=== PATIENT | male | born 1990 | race Caucasian/White ===

== ENCOUNTER 2019-10-29 11:48 | Emergency (ER) | payer SELFPAY ==
[2019-10-29 11:54] VITALS: BP 123/78; PULSE 96; RESP 16; TEMP 36.7; O2SAT 96
--- NOTE | 2019-10-29 12:05 | W.ED.GENAD ---
Discharge Plan Disposition Patient Disposition: HOME Condition: Stable Discharge Details Chief Complaint: Sorethroat Clinical Impression: Exposure to Streptococcal pharyngitis Primary Care Provider: None,None ED Provider: Gabriela Maciel Home Meds and New Rx's Prescriptions: New penicillin V potassium 500 mg tablet 500 mg PO BID 10 Days Qty: 20 RF: 0 Continued albuterol sulfate [ProAir HFA] 8.5 GM HFA aerosol inhaler 2 puff Inhalation Q4H PRN Qty: 1 RF: 3 fluticasone propion-salmeterol [Advair Diskus] 1 EACH blister with device 1 puff Inhalation BID Qty: 3 RF: 3 No Action amoxicillin 500 MG tablet 500 mg PO BID 7 Days Qty: 14 RF: 0 Discharge Instructions Instructions: Strep Throat (ED) Additional Instructions: Gargle with warm salt water up to 3 times a day as needed. Please take Tylenol or Ibuprofen with food every 4-6 hours as needed for pain and swelling. Take medications as prescribed. Take with food or yogurt. Follow up with primary care provider in 3-5 days. Return to ED sooner if any worsening or concerns. Increase oral fluids. Referrals: Melissa Mendieta NP [NURSE PRACTITIONER] - Medical Decision Making 29-year-old male presents with chief complaint of sore throat which began this morning. He presents with his who also has similar symptoms and history of strep throat pharyngitis. He does have erythemic posterior pharynx, tonsils bilaterally 1+ no exudate. No cervical lymphadenopathy. Is a smoker, denies fever, chills, trouble swallowing, or any other symptoms. 1208: Patient requests oral tablets for treatment options, dexamethasone 10 mg p.o. and penicillin V 500 mg ordered. Based on patient's symptoms and recent sick contact with a history of strep throat patient will be treated empirically for group A streptococcal. Return instructions discussed, verbalized understanding instructed to gargle with warm salt water at least 3 times a day, instructed to follow-up with primary care provider in 3 to 5 days. Patient verbalized understanding. HPI General Mode of arrival: ambulatory. Date/Time Provider Initiated Documentation: 10/29/19 11:49. Limitations to Documentation: no limitations. Information obtained by: patient. HPI Narrative: 29-year-old male presents with chief complaint of sore throat which began this morning. He presents with his who also has similar symptoms and history of strep throat pharyngitis. He does have erythemic posterior pharynx, tonsils bilaterally 1+ no exudate. No cervical lymphadenopathy. Is a smoker, denies fever, chills, trouble swallowing, or any other symptoms. Related Data Home Medications Medication Instructions Recorded Confirmed albuterol sulfate [ProAir HFA] 2 puff INHALATION Q4H PRN #1 12/30/15 10/29/19 inhaler fluticasone propion-salmeterol 1 puff INHALATION BID #3 inhaler 09/25/16 10/29/19 [Advair Diskus] amoxicillin 500 mg PO BID 7 Days #14 tab-cap 04/02/17 10/29/19 penicillin V potassium 500 mg PO BID 10 Days #20 tab 10/29/19 Previous Rx's Medication Instructions Recorded amoxicillin 500 mg PO BID 7 Days #14 tab-cap 04/02/17 penicillin V potassium 500 mg PO BID 10 Days #20 tab 10/29/19 Allergies Allergy/AdvReac Type Severity Reaction Status Date / Time No Known Allergies Allergy Unverified 04/01/17 13:31 General Stated Complaint: Sorethroat HARPER: 4 Review of Systems Narrative: Constitutional: Negative for weight loss, alert and oriented, well groomed, normal body habitus, appears comfortable. HEENT: Denies trauma, headaches, blurry vision, nasal discharge, sore throat, trouble swallowing. Chest: Denies chest pain, palpitations, irregular rhythm, hypertension. Respiratory: Denies Shortness of breath, cough, hemoptysis. GI: Denies abdominal pain, nausea, vomiting, diarrhea, constipation. : Denies dysuria, hematuria, flank pain, rectal bleeding. Neuro: Denies dizziness, blurry vision, weakness, syncope, headache or facial numbness. Hematologic: Denies easy bruising, intolerance to heat or cold, hair loss. [facility] Medical History ADHD (attention deficit hyperactivity disorder) Asthma Insomnia Learning difficulty Tobacco use disorder Social History Smoking/Tobacco Use Status: Current every day Tobacco Type: cigarettes Drug use: Daily Do you feel safe at home: Yes Do you feel safe in your relationship?: Yes Exam Narrative Exam Narrative: Constitutional: Alert and oriented x3. Appears stated age. Normal body habitus. Head: Normocephalic, no trauma. Eyes: Pupils PERRLA, Red reflex noted, EOM's intact. Eyelids symmetrical without lesions, discharge, or swelling. ENT: Bilateral TM's WNL, External ear normal to inspection, no mastoid TTP, swelling, or erythema, Nasal turbinates WNL, no nasal discharge. Normal dentition, Posterior pharynx erythemic, tonsils bilaterally 1+, no exudate. Chest: RRR, Normal S1, S2, distal pulses intact. Resp: Lungs clear to auscultation bilaterally, no wheezes, rales, or rhonchi. Musculoskeletal: Normal gait, 5/5 strength to all four extremities. Skin: No suspicious rashes or lesions. Capillary refill less than 2 sec. Neurologic: Cranial nerves II-XII intact. Alert and oriented x 3. DTR's intact. Hematologic/Lymphatic: No ecchymosis, no lymphadenopathy. Course Vital Signs Vital signs: Vital Signs Temperature 36.7 C 10/29/19 11:54 Pulse 96 H 10/29/19 11:54 Respiratory Rate 16 10/29/19 11:54 Blood Pressure 123/78 10/29/19 11:54 Pulse Oximetry 96 10/29/19 11:54 Temperature 36.7 C 10/29/19 11:54 Temperature Source Tympanic 10/29/19 11:54 Pulse 96 H 10/29/19 11:54 Respiratory Rate 16 10/29/19 11:54 Blood Pressure 123/78 10/29/19 11:54 Pulse Oximetry 96 10/29/19 11:54 Oxygen Delivery Method Room Air 10/29/19 11:54 Oxygen Flow Rate 0 10/29/19 11:54
[2019-10-29] MEDS: Penicillin V POTASSIUM 500 MG TAB PO (12:09)
[2019-10-29] MEDS: Dexamethasone 10 MG/ML VIAL PO (12:09)
== END 2019-10-29 12:34 | disposition home or self-care (01) ==
PROVIDERS: Emergency Provider Registered Nurse Emergency
DX: J02.9 Acute pharyngitis, unspecified (principal); Z20.89 Contact with and (suspected) exposure to other communicable diseases; F17.210 Nicotine dependence, cigarettes, uncomplicated
CPT/HCPCS: 99283; J1100

== ENCOUNTER 2020-10-30 18:16 | Emergency (ER) | payer MEDICAID, SELFPAY ==
[2020-10-30] VITALS (23 sets, daily range): BP systolic 101–143; BP diastolic 65–90; PULSE 46–55; RESP 22; TEMP 36.9; O2SAT 97–100
--- NOTE | 2020-10-30 18:45 | RT.EKG_ITS ---
APPROVED REPORT Exam: Resting ECG Reason for Exam: tachy, smoked crack Patient Location: E HR:52 bpm ECG Measurements Heart Rate 52 AXIS ND 136 P 64 QRSd 112 QRS 61 QT 582 T 75 QTc 544 Conclusion Sinus bradycardia...rate< 60 Probable left atrial enlargement...P >50mS, <-0.10mV V1 Incomplete right bundle branch block...QRSd >112, terminal axis(90,270) Prolonged QT interval...QTc >488mS I have reviewed and interpreted ECG and agree with software generated interpretation.
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
[2020-10-30 19:54] LABS: Abs Immature Grans 0.05 10^3/uL (0.0-0.06); Absolute Basophil Count 0.01 10^3/uL (0.0-0.2); Absolute Lymphocyte Count 1.15 10^3/uL (1.2-3.4); Absolute Monocyte Count 0.33 10^3/uL (0.1-0.8); Basophils % 0.1; HCT 46.9 % (40.0-50.0); HGB 16.4 g/dL (13.5-17.5); Immature Grans % 0.4; MCH 28.7 pg (27.0-33.0); MCV 82.1 fL (80-95); MPV 9.5 fL (8.0-11.0); Monocytes % 2.6; Neutrophils % 87.9; Nucleated RBC 0 %; Platelet Count 308 10^3/uL (130-400); RBC 5.71 10^6/uL (4.36-5.78); RDW 11.4 % (11.8-14.1); RDW-SD 33.6 fL
[2020-10-30 19:55] LABS: Absolute Neutrophil Count 11.25 10^3/uL (1.2-6.7)
[2020-10-30] MEDS: Ketorolac 30 MG/ML VIAL IVP (20:03)
[2020-10-30] MEDS: Normal Saline 1,000 ML 1000 ML IV (20:03)
[2020-10-30] MEDS: Ondansetron 4 MG/2 ML VIAL IVP (20:04)
[2020-10-30 20:09] LABS: ALT 29 U/L (16-63); AST 17 U/L (15-37); Albumin 4.2 g/dL (3.4-5.0); Alkaline Phosphatase 124 U/L (46-116); Anion Gap 12.7 mmol/L (3-11); BUN 13 mg/dL (7-18); Bilirubin, Total 0.6 mg/dL (0.2-1.0); CO2 25.3 mmol/L (21.0-32.0); CREATININE 1.2 mg/dL (0.70-1.30); Calcium 10.2 mg/dL (8.5-10.1); Chloride 99 mmol/L (98-107); Glucose 128 mg/dL (74-106); Lipase 56 U/L (73-393); Potassium 3.8 mmol/L (3.5-5.1); Sodium 137 mmol/L (136-145); Total Protein 8.8 g/dL (6.4-8.2)
[2020-10-30 20:25] LABS: Troponin I < 0.05 ng/mL (<0.06)
[2020-10-30] MEDS: cloNIDine 0.1 MG TAB PO ×2 (20:32→21:51)
[2020-10-30] MEDS: Dicyclomine 20 MG TAB PO ×2 (20:41→21:51)
[2020-10-30] MEDS: Lactated Ringers 1,000 ML 1000 ML IV (20:57)
[2020-10-30 21:03] LABS: Bilirubin Small (Negative); Blood Negative (Negative); Clarity Clear (Clear); Glucose Negative (Negative); Ketones >=160 mg/dL (Negative); Leukocyte Esterase Negative (Negative); Nitrite Negative (Negative); Specific Gravity 1.015 (1.005-1.025); pH >= 9.0 (5-8)
[2020-10-30 21:11] LABS: Bacteria Negative HPF (Negative); C & S Indicated? No; Casts Negative LPF (Negative); Crystals Negative HPF (Negative); Epithelial Cells Negative HPF (Negative); Mucus Moderate (Negative); Other Cells Negative (Negative); RBC Negative HPF (0-2); WBC 0-2 HPF (0-5)
[2020-10-30 21:22] LABS: *AMPHETAMINES SCREEN URINE Negative (Negative); *BARBITURATES SCREEN URINE Negative (Negative); *BENZODIAZEPINES SCREEN URINE Negative (Negative); Cannabinoids THC Positive (Negative); Cocaine Screen,Urine Positive (Negative); METHADONE URINE SCREEN Negative (Negative); OPIATES URINE SCREEN Positive (Negative); Tricyclic Antidepressants Negative (Negative)
[2020-10-30] MEDS: Dicyclomine 20 MG TAB (21:51)
== END 2020-10-30 21:49 | disposition home or self-care (01) ==
PROVIDERS: Emergency Provider Physician Assistant
DX: F11.23 Opioid dependence with withdrawal (principal)
CPT/HCPCS: 80053; 80307; 83690; 93005; 96361; 96374; 96375; 99284; 81003; 81015; 84484; 85025; 93010; 99283; J1885; J2405

== ENCOUNTER 2021-01-11 10:12 | Emergency (ER) | payer MEDICAID, SELFPAY ==
[2021-01-11 10:14] VITALS: BP 123/76; PULSE 80; RESP 18; TEMP 36.5; O2SAT 98
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
[2021-01-11] MEDS: Methadone Liquid 10 MG/ML 75 MG PO (12:07)
[2021-01-11 12:12] VITALS: BP 125/80; PULSE 57; RESP 18; O2SAT 95
--- NOTE | 2021-01-14 11:28 | W.ED.FU ---
Date of service: 01/14/21 Time of Service: 11:28 Follow Up Plan: Phone call received patient lost the prescription for cephalexin. Patient did receive a printed prescription. A new prescription for cephalexin was sent to the pharmacy we have on file which is [facility] in [place]. Patient and family notified.
--- NOTE | 2021-01-14 11:32 | NUR.NOTE ---
Nursing Note: RACHNA called asking if the patient was sent home with any doses of methadone. I spoke with Gabriela Maciel NP and she stated that we do not send doses home with patients. This was relayed to them. Linda Braun
== END 2021-01-11 12:26 | disposition home or self-care (01) ==
LOC: ER 11:38
PROVIDERS: Emergency Provider Emergency Medicine
DX: S01.112A Laceration without foreign body of left eyelid and periocular area, initial encounter (principal); S32.010A Wedge compression fracture of first lumbar vertebra, initial encounter for closed fracture; V89.2XXA Person injured in unspecified motor-vehicle accident, traffic, initial encounter; L03.116 Cellulitis of left lower limb; F11.20 Opioid dependence, uncomplicated
CPT/HCPCS: 12014; 90471; 99284; 70450; 71046; 72125

== ENCOUNTER 2022-10-21 02:54 | Outpatient (CLI) | payer MEDICAID, SELFPAY ==
[2022-10-21 12:57] LABS: HCT 47.7 % (40.0-50.0); HGB 16.7 g/dL (13.5-17.5); MCH 30.3 pg (27.0-33.0); MCV 86 fL (80-95); MPV 9.4 fL (8.0-11.0); Platelet Count 207 10^3/uL (130-400); RBC 5.52 10^6/uL (4.36-5.78); RDW 11.6 % (11.8-14.1); RDW-SD 37.2 fL; WBC 9.79 10^3/uL (4.4-10.8)
[2022-10-21 13:11] LABS: VALPROIC ACID 42.7 ug/mL
[2022-10-21 13:47] LABS: ALT 23 U/L (16-63); AST 12 U/L (15-37); Albumin 4.1 g/dL (3.4-5.0); Alkaline Phosphatase 97 U/L (46-116); Anion Gap 9.9 mmol/L (3-11); BUN 13 mg/dL (7-18); Bilirubin, Total 0.2 mg/dL (0.2-1.0); CO2 25.1 mmol/L (21.0-32.0); CREATININE 0.9 mg/dL (0.70-1.30); Calcium 9.4 mg/dL (8.5-10.1); Chloride 104 mmol/L (98-107); Estimated GFR 117.83 (mL/min/1.73m2); Glucose 123 mg/dL (74-106); Potassium 4.4 mmol/L (3.5-5.1); Sodium 139 mmol/L (136-145); Total Protein 7.8 g/dL (6.4-8.2)
== END 2022-10-21 02:55 | disposition home or self-care (01) ==
LOC: LBO 02:57
PROVIDERS: Visit Provider Nurse Practitioner Psychiatric/Mental Health
DX: F31.30 Bipolar disorder, current episode depressed, mild or moderate severity, unspecified (principal); F43.12 Post-traumatic stress disorder, chronic; Z51.81 Encounter for therapeutic drug level monitoring; Z79.899 Other long term (current) drug therapy
CPT/HCPCS: 36415; 80053; 85027; 80164